=== PATIENT | male | born 1955 | race Caucasian/White ===

== ENCOUNTER 2021-06-23 20:16 | Emergency (ER) | payer MEDICARE, OTHER ==
[~2021-06-23] VITALS: Ht 172.7 cm; Wt 102.1 kg
== END 2021-06-23 23:17 | disposition home or self-care (01) ==
LOC: ER 20:16
DX: U07.1 COVID-19 (principal); Z23 Encounter for immunization; I10 Essential (primary) hypertension
CPT/HCPCS: 99284-25; M0247